=== PATIENT | female | born 1965 | race Caucasian/White ===

== ENCOUNTER 2019-08-09 10:35 | Observation (INO) | payer MEDICAID, SELFPAY ==
[2019-08-06 11:47] VITALS: BMI 32.5
--- NOTE | 2019-08-06 12:29 | ANES.PREANES ---
Pre-Anesthetic Assessment Pre-Anesthetic Assessment: Height/Weight: Height 1.47 m Weight 70.76 kg Proposed Procedure: Operation Date: 08/09/19 11:25 Proposed Procedures p Anterior Cervical Discecotmy&Fusion 2Lev C4-C5, C5-C6(Not Applicable) - Karsten Escobar MD Social: Social History: Tobacco (1 ppd) and No alcohol Airway: Submandibular: WNL Cervical ROM: WNL MP: 1 Dentition: Chipped Additional comments: missing (pulled) Pulmonary: Pulmonary: None reported CV/HEM: CV/HEM: HTN : : None reported Hepatic: Hepatic: None reported GI: GI: None reported Metabolic: Comments: hypoglycemic Musc/skel: Comments: Slipped disc in lower spine, 2 compressed thoracic Neuropsych: Neuropsych: None reported Anesthetic Plan: ASA status: II Anesthesia: General Risk of > 500 ml blood loss (7ml/kg in children): No Other Pertinent Information: During her nerve ablation, she was given etomidate and it damaged veins in arm and caused her to shake uncontrollably PFSH Anesthesia PFSH: Social History (Updated 08/06/19 @ 11:40 by Joan Landry RN) Smoking and tobacco status: current every day smoker cigarettes Packs smoked per day: 1 Years cigarettes smoked: 36 Quit status (tobacco): considering quitting Second hand smoke exposure: Yes Smoking risk assessment/counseling performed?: Yes Data Anesthesia Cardiac Studies: No Data to Display
--- NOTE | 2019-08-06 12:49 | PC.PT ---
pt fit and instructed in care and use of [place] J collar and instructed in written HEP, all questions were answered.
[2019-08-09] VITALS (21 sets, daily range): BP systolic 100–149; BP diastolic 52–80; PULSE 56–88; RESP 16–20; TEMP 36.1–37; O2SAT 90–99
[2019-08-09] MEDS: sodium chloride 0.9% 1,000 ML 30 ML IV (06:29)
--- NOTE | 2019-08-09 07:22 | PM.HPUD ---
H&P update H&P Update: DATE OF SURGERY/PROCEDURE: 08/09/19 DATE H&P PERFORMED: 08/06/19 H&P UPDATE INFORMATION: H&P completed within last 30 days, No changes to prior documentation and H&P to be scanned into chart PLANNED PROCEDURE: Operation Date: 08/09/19 12:30 Proposed Procedures Anterior Cervical Discectomy&Fusion 2Lev C4-C5, C5-C6(Not Applicable) - Karsten Escobar MD Full H&P Medications/Allergies: Current Medications: Current Medications Generic Name Dose Route Start Last Admin Trade Name Freq PRN Reason Stop Dose Admin Sodium Chloride 1,000 mls @ 30 ml s/hr 08/09/19 06:15 08/09/19 06:29 Sodium Chloride 0.9% IV 08/10/19 06:14 30 mls/hr .Q24H KRISHAN Administration Perinent History: Social History: Social History Smoking and tobacco status: current every day smoker cigarettes Packs smoked per day: 1 Years cigarettes smoked: 36 Quit status (tobacco): considering quitting Second hand smoke exposure: Yes Smoking risk assessment/counseling performed?: Yes
--- NOTE | 2019-08-09 07:46 | XR_ITS ---
WS: [id number] Cervical spine, AP and lateral, 08/09/2019, 1112 hours. Clinical Data: arthrodesis status Comparison: Lateral operating room cervical spine, 08/09/2019, 0837 hours. Findings: There is an anterior cervical disc fusion from C4 through C6 with bilateral screws. The fus ion components are in good position. Interbody fusions at C4-C5 and C5-C6 are seen. XR/XR cervical spine 3V* [id number] Impression: Anterior cervical disc fusion C4-C6.
--- NOTE | 2019-08-09 07:49 | XR_ITS ---
WS: [id number] INTRAOPERATIVE TECHNIQUE: Lateral view cervical spine CLINICAL INFORMATION: surgery COMPARISON: None. FINDINGS: Single lateral view cervical spine. Localization marker anteriorly at C5-6. Slight retrolisthesis C4 on C5 and C5 on C6. Endotracheal tube. XR/XR cervical spine [facility] [id number] IMPRESSION: Images obtained for intraoperative purposes.
--- NOTE | 2019-08-09 08:31 | SUR.OPER ---
UPDATED FAMILY ON PATIENT'S STATUS VIA PERSONAL CELLPHONE.
--- NOTE | 2019-08-09 08:36 | XR_ITS ---
WS: [id number] Portable lateral OR C-spine, 08/09/2019, 0837 hours Clinical Data: SURGERY Comparison: Portable OR lateral C-spine, today, 0754 hours. Findings: Retractors are now in position. There is a radiopaque needle which is localizing the C4-C5 disc inter space. The endotracheal tube remains in good position. XR/XR cervical spine [facility] [id number] Impression: Localization of the C4-C5 disc interspace.
--- NOTE | 2019-08-09 09:34 | SUR.OPER ---
NOTIFIED FAMILY OF PATIENT'S STATUS VIA PERSONAL CELLPHONE.
--- NOTE | 2019-08-09 10:09 | SUR.OPER ---
NOTIFIED FAMILY OF PATIENT'S STATUS VIA PERSONAL CELLPHONE.
[2019-08-09] MEDS: fentaNYL 50 mcg/mL INJ 2mL IVP ×2 (10:45→10:52)
--- NOTE | 2019-08-09 11:02 | SUR.PHASEI ---
PT AWAKE ALERT ON RA SATS DOWN TO 90% AFTER PAIN MEDS PT PLACED ON 3LNC WITH GOOD SPONTANEOUS RESP NO DISTRESS SATS QUICKLY UP TO 95% . PT TAKING OCC ICE CHIPS
[2019-08-09] MEDS: morphine 4 mg/mL SDV 1 mL 2 MG IVP ×4 (11:10→11:24)
--- NOTE | 2019-08-09 11:33 | SUR.PHASEI ---
PT STILL RATES LT SHOULDER PAIN AT 8 PT RESTING MORE QUIETLY DOZES IF NOT DISTURBED FACE SCALE 4 PT TAKING ICE CHIPS FAMILY UPDATED VSS.
[2019-08-09] MEDS: lactated ringers 1,000 ML 90 ML IV (12:04)
--- NOTE | 2019-08-09 12:05 | SUR.PHASEI ---
PT TO FLOOR AWAKE ALERT FAMILY WALKED UP WITH PT PT TALKATIVE AND UP AND WALKED TO FLOOR BED WITH NO DIFFICULTY, NECK BRACE IN PLACE DRESSING TO ANT NECK D/I NO SWELLING NOTED
[2019-08-09] MEDS: docusate sodium 100 mg Capsule PO ×2 (12:18→18:01)
[2019-08-09] MEDS: tizanidine 4 mg Tablet PO ×2 (12:18→18:03)
[2019-08-09] MEDS: HYDROcodone-acetaminophen 5-325 mg Tablet PO (15:06)
--- NOTE | 2019-08-09 15:52 | P.DS_ITS ---
Discharge Providers Date of Admission: 08/09/19 10:35 Date of Discharge: 08/09/19 Attending Provider at Admission: Karsten Escobar Attending Provider at Discharge: Karsten Escobar Diagnoses at Discharge Discharge Diagnosis (1) Status post cervical spinal fusion: Status: Acute Problem details: Patient is doing well after C4-C6 ACDFF performed earlier today. She has ambulated, voided, and tolerated diet. She appears reasonable for discharge home this evening. (2) Intervertebral cervical disc disorder with myelopathy, cervical region: Status: Acute (3) Instability of joint: Status: Acute Reason for Visit Reason for Visit: Reason For Visit: Cervical Disc Disorder with Myelopathy of Mid-Cerv Hospital Course Hospital Course: The patient is a 53-year-old white female with symptomatic, radiographically confirmed cervical disc/joint disease and associated neural impingement. She complained primarily of left upper extremity symptoms. Imaging studies demonstrated dominant impingement sites at C4-C5 and C5-C6. Conservative management did not provide adequate lasting symptom relief. After review of the diagnostic and treatment options with the risks/potential benefits/rationale for each, the patient requested to proceed with surgical intervention. She underwent C4-C6 ACDFF on 08/09/2019. She tolerated the procedure well. She noted improvement in preoperative symptoms following surgery. She completed perioperative intravenous antibiotic doses, and the physical therapy postoperative spine protocol. She was ambulatory, voiding, and tolerating regular diet prior to requested discharge home on the evening of the date of surgery. Physical Exam Const: COMMON NORMALS: no apparent distress GENERAL APPEARANCE: cooperative and comfortable Neck/C-Spine: COMMON NORMALS: supple and no JVD CERVICAL SPINE: Yes collar present Resp: COMMON NORMALS: normal respiratory effort EFFORT & INSPECTION: Yes able to speak in complete sentences and No stridor Cardio: COMMON NORMALS: no JVD Neuro: GAIT: Yes normal gait MOTOR EXAM: strength 5/5 throughout (bilateral upper extremities) Psych: COMMON NORMALS: speech normal ATTITUDE: Yes calm and Yes engaged ACTIVITY/MOTOR BEHAVIOR: Yes appropriate eye contact SPEECH: Yes normal speech MOOD & AFFECT: Yes euthymic mood ATTENTION/CONCENTRATION: Yes attention grossly intact INSIGHT: insight good JUDGEMENT: judgment good Skin: WOUNDS: Yes surgical site (Left anterolateral neck surgical site dressing clean/dry/intact. Incision without erythema or active drainage.) Urinary Catheter Management^: Ag: Cath Placed During This Visit: no Discharge Data Data Completed and Pending: Completed Studies During Hospitalization Category Date Time Status XR cervical spine 1 view portable [ XR cervical spine Exams 08/09/19 07:49 Completed 1[facility]port 22823] Rou jake XR cervical spine 1 view portable [ XR cervical spine Exams 08/09/19 08:36 Completed 1[facility] [id number]] Rou jake XR cervical spine 3V* [id number] Routine Exams 08/09/19 07:46 Completed Pathology: Surgic al [PTH] Routine Pth 08/09/19 10:20 Completed Vitals: Last Vital Signs Temp 98.0 F 08/09/19 17:55 Pulse 88 08/09/19 17:55 Resp 18 08/09/19 17:55 BP 118/66 08/09/19 14:55 Pulse Ox 95 08/09/19 17:55 Discharge Plan Discharge Patient Disposition: Home, Self-Care Condition: Stable Prescriptions: New hydrocodone-acetaminophen 5-325 mg Tablet 1 - 2 tab PO Q4H PRN (Reason: Moderate To Severe Pain) Qty: 30 RF: 0 Continued cetirizine [Zyrtec] 10 mg Tablet 10 mg PO DAILY PRN (Reason: Allergy Symptoms) RF: 0 tizanidine 4 mg Tablet 4 mg PO TID PRN (Reason: Muscle Spasm) RF: 0 fluoxetine 10 mg Tablet 10 mg PO DAILY RF: 0 amlodipine 5 mg Tablet 5 mg PO DAILY RF: 0 estradiol 1 mg Tablet 1 mg PO DAILY RF: 0 metoprolol tartrate 25 mg tablet 25 mg PO BID RF: 0 Discharge Orders: Discharge Order (Routine); Ordered 08/09/19 Ordered By: Karsten Escobar Other Ambulatory Orders: XR cervical spine 3V* [id number] (Routine) Timeframe: 2 Weeks Facility: [facility] - Location: Radiology [place] [facility] Ordered By: Karsten Escobar Referrals: Karsten Escobar MD [Physician] - 2 weeks (AP/lateral c-spine x-rays prior to visit. Please call and schedule a follow up with Dr. Escobar in 2 weeks) Discharge Diet: Advance as tolerated Discharge Activity: Limit activity as instructed Patient Instructions: Hydrocodone/Acetaminophen (By mouth), Anterior Cervical Discectomy (DC) Activity Restrictions/Additional Instructions: Activity -Cervical fusion: Wear cervical collar 24 hours a day. Change as necessary for showering, shaving, or if it becomes soiled. -No lifting or reaching overhead. - No driving until office followup visit - No lifting/pushing/pulling over 10 pounds - Avoid twisting or bending - Walking is encouraged - Home exercise per physical therapist - You may engage in sexual intercourse at any time as long as it is comfortable for you - Check with your doctor before returning to work. Notify your doctor if you develop: - temperature of 101.5 degrees F. or higher - redness or swelling of the incision - Foul drainage - increasing pain - increasing numbness or tingling in the arms or legs - New or increasing problems with vision, balance, memory, speaking, nausea or vomiting Hygiene: - Showering is okay - No tub baths or soaking Other: Remove outer bandage 3 days after surgery. If you have paper strips, leave in place until they fall off on their own. If you have stitches, keep your incision dry until the stitches are removed. Your doctor's office is available to answer any questions from 7 AM to 5:30 PM, Tuesday through at [phone]. After hours, go to the emergency room at [facility] or call 911 for assistance. Discharge Date/Time: 08/09/19 18:50 Discharge Attestations Time Spent in Discharge Care*: other (postop global period) Quality Metrics Clinical Quality Measures During this hospital stay, did patient experience: None Coding Level of Care Code Acute Burrer Operator for Kiya Garay Exam Problem Focused Diagnoses Status post cervical spinal fusion Z98.1 Intervertebral cervical disc disorder with myelopathy, cervical region M50.00 Instability of joint M25.30 Comment postop global period
[2019-08-09] MEDS: ondansetron 2 mg/ML SDV 2 mL 4 MG IVP (16:00)
--- NOTE | 2019-08-10 10:03 | SUR.OPER ---
late entry: 08/09/2019 0830 surgifoam 1 sponge was used in the neck. lot [id number] exp 09/06/22.
--- NOTE | 2019-08-10 11:19 | PM.OP ---
Operative Report Post-Operative Note Date of procedure: 08/09/19 Operative Report Procedure: DATE OF SURGERY: 08/09/2019 DATE OF DICTATION: 08/10/2019 PREOPERATIVE DIAGNOSIS: Intervertebral disc disorder with myelopathy, midcervical region. POSTOPERATIVE DIAGNOSES: 1. Intervertebral disc disorder with myelopathy, midcervical region. 2. Instability of joint. PROCEDURES PERFORMED: 1. C4-C5, C5-C6 anterior cervical discectomy with osteophytectomy. 2. C4-C5, C5-C6 anterior cervical plate and screw fixation (Synthes Vectra system). 3. C4-C5, C5-C6 placement of intervertebral prosthetic device (ACIS ProTi Spacer). 4. C4-C5, C5-C6 anterior cervical fusion utilizing morselized autograft obtained from the osteophytectomy portions of the procedure. ANESTHESIA: General endotracheal. ESTIMATED BLOOD LOSS: <50 milliliters. SURGEON: Nolvia Escobar M.D. INDICATIONS FOR PROCEDURE: The patient is a 53-year-old white female with symptomatic, radiographically confirmed cervical disc/joint disease and associated neural impingement. She complained primarily of left upper extremity symptoms. Imaging studies demonstrated dominant impingement sites at C4-C5 and C5-C6. Conservative management did not provide adequate lasting symptom relief. After review of the diagnostic and treatment options with the risks/potential benefits/rationale for each, the patient requested to proceed with surgical intervention. DESCRIPTION OF PROCEDURE: After routine preoperative evaluation and informed consent were obtained, the patient was taken to the Operating Room and placed under general endotracheal anesthesia. She was positioned supine and fit in the [facility] tongs for the application of in-line cervical traction. The anterolateral neck on the left was prepared with hair clippers. A proposed transverse skin incision was marked with a sterile skin marker, utilizing intraoperative radiography and regional anatomy for localization. The area was scrubbed with Betadine, prepped with DuraPrep, and draped with sterile towels and drapes. [place] surgical barrier was applied. The proposed incision site was infiltrated with 1% Xylocaine with Epinephrine. A skin incision was made and carried down into the subcutaneous tissues. The platysma was identified and divided in the direction of its fibers. A plane was dissected just medial to the carotid sheath and lateral to the midline esophagus and trachea. Prevertebral soft tissues were bluntly dissected free of the anterior margin of the cervical spine. Longus coli muscles were freed from their medial attachments. Deep self-retaining retractors were placed. Intraoperative radiography verified the desired surgical levels. The C4-C5 and C5-C6 interspaces were sequentially incised with a #11 blade. Discectomies were accomplished utilizing various curettes and pituitary rongeurs. Anterior marginal osteophytes were resected with the Lempert and Kerrison rongeurs. Cartilaginous end plates were stripped free with curettes. Posterior marginal osteophytes were resected with thin foot plate Kerrison rongeurs. The medial aspects of the neural foramina were enlarged in a similar manner. Posterior longitudinal ligament was divided and resected as necessary to further the decompression. Overall, encroachment and osteophyte prominence were greater on the left than the right, consistent with preoperative imaging studies. Once the decompressions were felt to be adequate at both levels, the disc spaces were sized. A 7 mm ACIS ProTi lordotic/medium Spacer was chosen for C4-C5. A 7 mm lordotic ACIS ProTi lordotic/medium Spacer was chosen for C5-C6. The Spacers were packed with morselized autograft obtained from the osteophytectomy portions of the procedure. The Spacers were sequentially placed within the C4-C5 and C5-C6 interspaces while in-line cervical traction was applied via the [place] tongs. Once the Spacers were felt to be in good position, a Synthes Vectra plate of the desired size was chosen. The plate was secured to the C4, C5 and C6 vertebral bodies with bilateral 4 mm x 14 mm self-drilling screws. Final screw tightening was performed, and the locking mechanisms within the plate were noted to engage the screws at each site. The construct was inspected and felt to be in good position and secure. The wound was copiously irrigated with sterile saline and antibiotic irrigation. Hemostasis was ensured with the bipolar electrocautery. Wound closure was performed in multiple layers with 2-0 Vicryl Plus simple interrupted closure of the platysma and deep dermis as separate layers. Final skin closure was performed with 4-0 Vicryl Plus in a running subcuticular pattern. Steri-Strips were applied and a sterile dressing was placed. The patient was released from the [place] tongs and fit in a [place] collar. She was transferred onto the Recovery Room cart in the supine position. She was extubated without incident. The patient tolerated the procedure well. There were no known complications. All sponge, needle, and instrument counts were correct at the completion of the procedure.
== END 2019-08-09 18:50 | disposition home or self-care (01) ==
LOC: MEDSURG 10:36
PROVIDERS: Admitting Provider Specialist; Family Provider Nurse Practitioner Family; Visit Provider Specialist
PROC: 0RB30ZZ Excision of Cervical Vertebral Disc, Open Approach (ICD-10-PCS; CPT 22551; principal; 2019-08-09 07:00)
DX: M50.021 Cervical disc disorder at C4-C5 level with myelopathy (principal); F17.210 Nicotine dependence, cigarettes, uncomplicated; I10 Essential (primary) hypertension
CPT/HCPCS: 20936; 22551; 22552; 22853 ×2; 12345; 51702; 72020; 72040; 88304; 96365; 96375; 97110; 97161; C1713; G0378; J0690; J1100; J2001; J2270; J2405; J2704; J3010; J3490; J7030; L0172; L0174

== ENCOUNTER 2019-08-27 08:32 | Outpatient (CLI) | payer MEDICAID, SELFPAY ==
--- NOTE | 2019-08-27 08:41 | XR_ITS ---
WS: [id number] CERVICAL SPINE TECHNIQUE: 3 views of the cervical spine CLINICAL INFORMATION: arthrodesis status, S/P CERVICAL FUSION COMPARISON: [id number] FINDINGS: Straightening of the normal cervical lordosis. Anterior cervical fusion C4-C6 with interbody fusion. Disc space narrowing C6-7. Normal prevertebral soft tissues. XR/XR cervical spine 3V* [id number] IMPRESSION: 1. Straightening of the normal cervical lordosis. 2. Anterior cervical fusion with interbody fusion C4-C6. Hardware appears in g ood position. 3. Disc space narrowing C6-C7.
== END 2019-08-27 08:33 | disposition home or self-care (01) ==
LOC: WPI 08:37
PROVIDERS: Family Provider Nurse Practitioner Family; PCP Nurse Practitioner Family; Visit Provider Specialist
DX: Z98.1 Arthrodesis status (principal)
CPT/HCPCS: 72040

== ENCOUNTER 2019-09-19 10:18 | Outpatient (CLI) | payer MEDICAID, SELFPAY ==
--- NOTE | 2019-09-19 10:30 | XR_ITS ---
WS: [id number] CERVICAL SPINE 2 VIEWS HISTORY: s/p cervical spinal fusion COMPARISON: 08/27/2019 Prior anterior cervical fusion from C4 to C6. Interbody spacers at C4-5 and C5-6. No subsidence or garcia rdware failure. No change in position of the hardware. Moderate disc space narrowing at C6-7 with sma ll hypertrophic osteophytes. No fracture. Soft tissues are normal. XR/XR cervical spine 3V* [id number] IMPRESSION: 1. Stable anterior cervical fusion with interbody spacers from C4 to C6. No co mplications. 2. Moderate disc space narrowing at C6-7 is unchanged.
== END 2019-09-19 10:19 | disposition home or self-care (01) ==
LOC: RADWPI 10:20
PROVIDERS: Family Provider Nurse Practitioner Family; PCP Nurse Practitioner Family; Visit Provider Licensed Practical Nurse
DX: Z98.1 Arthrodesis status (principal)
CPT/HCPCS: 72040

== ENCOUNTER 2019-09-21 13:09 | Outpatient (CLI) | payer MEDICAID, SELFPAY ==
--- NOTE | 2019-09-21 13:23 | MM_ITS ---
WS: [id number] BILATERAL DIGITAL SCREENING MAMMOGRAPHY WITH CAD CLINICAL INFORMATION: SCREENING HISTORY: Screening mammogram. No current complaints. COMPARISON: TECHNIQUE: Bilateral CC and MLO views. FINDINGS: Scattered fibroglandular densities bilaterally. No suspicious focal mass, asymmetry, calcifications, or architectural distortion. Lucent centered calcifications. No evidence of malignancy. MM/[place] [id number] IMPRESSION: BI-RADS: 2-Benign FOLLOW UP: 1 Year Follow-up Recommend return to annual screening mammography.
== END 2019-09-21 13:10 | disposition home or self-care (01) ==
LOC: RADSHAW 13:13
PROVIDERS: Family Provider Nurse Practitioner Family; PCP Nurse Practitioner Family; Visit Provider Nurse Practitioner Family
DX: Z12.31 Encounter for screening mammogram for malignant neoplasm of breast (principal)
CPT/HCPCS: 77067

== ENCOUNTER 2019-10-10 14:24 | Outpatient (CLI) | payer MEDICAID, SELFPAY ==
--- NOTE | 2019-10-10 11:00 | CT_ITS ---
WS: [id number] CT CERVICAL SPINE HISTORY: s/p cervical spinal fusion TECHNIQUE: Contiguous 2.5 mm axial imaging performed through the entire cervical spine. Sagittal and coronal reformats also performed. All CT scans at [facility] use at least one of these do se optimization techniques: automated exposure control; mA and/or kV adjustment per patient size (inc ludes targeted exams where dose is matched to clinical indication); or iterative reconstruction. DLP: 1599.49 mGycm COMPARISON: 05/17/2019 Prior anterior cervical fusion extends from C4 to C6. Interbody spacers at C4-5 and C5-6 without bone fusion. Moderate disc space narrowing at C6-7. No fractures. Craniocervical junction is normal. C2-C3: Shallow central protrusion. C3-C4: Normal. C4-C5: Mild osteophytic ridging with LEFT foraminal narrowing. No stenosis. C5-C6: Moderate osteophytic ridging with mild central and moderate bilateral foraminal stenosis. C6-C7: Mild osteophytic ridging with encroachment into the foramen. Moderate bilateral foraminal sten osis and mild central stenosis. Slightly greater stenosis on the LEFT. C7-T1: Normal. Unfused apophysis spinous process of T1 or remote fracture. Lung apices are clear. Mild atherosclerosis carotid arteries. CT/CT cervical spin wo con* [id number] IMPRESSION: 1. Interval anterior cervical fusion with interbody grafting from C4 to C6. No subsidence or fracture. Normal alignment with islam of the disc space he ight. 2. Moderate bilateral foraminal stenosis at C5-6 and C6-7 predominantly due to osteophyte disease. No advancement since the prior study.
== END 2019-10-10 14:25 | disposition home or self-care (01) ==
LOC: RADWPI 14:26
PROVIDERS: Family Provider Nurse Practitioner Family; PCP Nurse Practitioner Family; Visit Provider Licensed Practical Nurse
DX: Z98.1 Arthrodesis status (principal); M48.02 Spinal stenosis, cervical region
CPT/HCPCS: 72125

== ENCOUNTER 2019-11-16 09:24 | Outpatient (CLI) | payer MEDICAID, SELFPAY ==
--- NOTE | 2019-11-16 09:30 | MR_ITS ---
WS: [id number] MRI LUMBAR SPINE NONCONTRAST TECHNIQUE: Sagittal T1, T2 and STIR imaging. Axial T1 and T2 imaging. CLINICAL INFORMATION: Lumbar disc disease COMPARISON: MRI April 17, 2019 FINDINGS: Mild lumbar curve. No acute compression. No high-grade central canal stenosis. L1-L2: Normal. L2-L3: Mild annular bulging. Mild facet arthropathy. Spinal canal and foramen are patent. L3-L4: Mild annular bulging. Moderate facet arthropathy. Slight narrowing of the left subarticular re cess. Foramen are patent. L4-L5: Annular bulging with mild central canal stenosis. Narrowing of the subarticular recess bilater ally. Moderate facet arthropathy. Foramen are patent. L5-S1: No significant disc bulging. Moderate facet arthropathy. Spinal canal and foramen are patent. Visualized pelvic bony structures: Normal. Paravertebral soft tissues: Normal. Small amount of free fluid in the cul-de-sac. Slightly aneurysmal infrarenal abdominal aorta measuring 2.1 x 2.5 cm (AP by transverse). MR/MR lumbar spine wo con* [id number] IMPRESSION: 1. Mild lumbar curve. No acute compression. No high-grade central canal stenos is. 2. Disc bulging worse L4-5 with mild central canal stenosis and impingement on the right greater than left subarticular recess and traversing L5 nerve roots. Eccentric disc bulging at this level with mild bilateral foraminal narrowing. Moderate facet arthropathy. 3. Minimal annular bulging L3-4 with slight effacement of ventral thecal sac. 4. Moderate facet arthropathy L5-S1. 5. Slightly aneurysmal infrarenal abdominal aorta measuring 2.1 x 2.5 cm (AP b y transverse). 6. No significant interval changes since the prior examination.
--- NOTE | 2019-11-16 10:15 | MR_ITS ---
WS: [id number] MRI THORACIC SPINE WITHOUT CONTRAST TECHNIQUE: Sagittal T1, T2 and STIR imaging. Axial T2 imaging. Noncontrast imaging obtained. CLINICAL INFORMATION: Thoracic back pain COMPARISON: None. FINDINGS: Mild thoracic curve. Mild thoracic kyphosis. No acute compression. No high-grade central canal stenos is. A few Schmorl's nodes in the mid thoracic spine. Cord signal is normal. A few small disc protrusi ons the mid thoracic spine. Small disc protrusions more prominent at right T6-7, left T7-8, left T8-9, right T9-T10, and left T10 -11. Moderate facet arthropathy in the lower thoracic spine. Mild bony foraminal narrowing more prominent at bilateral T5-6, right T6-7, bilateral T7-8, bilateral T8-T9, and right T9-T10. MR/MR thoracic spin wo con* [id number] IMPRESSION: 1. Mild thoracic curve with mild thoracic kyphosis. 2. No high-grade central canal stenosis. Cord signal is normal. 3. A few tiny disc protrusions in the mid thoracic spine described above witho ut significant spinal canal narrowing. Disc protrusions of improved slightly si nce 2017. Otherwise no significant interval changes. 4. Mild multilevel foraminal narrowing described above.
--- NOTE | 2019-11-16 11:30 | XR_ITS ---
WS: [id number] THORACIC SPINE TECHNIQUE: 3 views of the thoracic spine CLINICAL INFORMATION: Thoracic pain COMPARISON: None. FINDINGS: Postoperative changes lower cervical spine. Mild anterior wedging in the mid thoracic spine. Mild spo ndylitic changes. No acute appearing compression fractures. Postoperative changes anterior interbody cervical fusion C4-C6. XR/XR thoracic spine 3V* [id number] IMPRESSION: No acute thoracic spine findings.
--- NOTE | 2019-11-16 11:45 | XR_ITS ---
WS: [id number] LUMBAR SPINE FLEXION AND EXTENSION TECHNIQUE: 3 views of the lumbar spine: Lateral neutral, flexion, and extension views. CLINICAL INFORMATION: Low back pain COMPARISON: None. FINDINGS: Slight anterolisthesis L4 on L5 measuring 2.8 mm. This increases on flexion to 3.9 mm and decreases o n extension to 2.8 mm. Moderate facet arthropathy L4-L5 and L5-S1. Anterior wedging lower thoracic sp ine. Disc space narrowing worse at L3-L4 L4-L5 and L5-S1. XR/XR lumbar spine f/e only [id number] IMPRESSION: Mild flexion instability L4-5 described above
== END 2019-11-16 09:25 | disposition home or self-care (01) ==
LOC: RADWPI 09:27
PROVIDERS: Family Provider Nurse Practitioner Family; PCP Nurse Practitioner Family; Visit Provider Licensed Practical Nurse
DX: M51.36 Other intervertebral disc degeneration, lumbar region (principal); M53.2X6 Spinal instabilities, lumbar region; M40.294 Other kyphosis, thoracic region; M51.24 Other intervertebral disc displacement, thoracic region; M48.00 Spinal stenosis, site unspecified; M47.817 Spondylosis without myelopathy or radiculopathy, lumbosacral region; I71.4 Abdominal aortic aneurysm, without rupture
CPT/HCPCS: 72072; 72120; 72146; 72148

== ENCOUNTER 2020-01-02 12:02 | Outpatient (CLI) | payer MEDICAID, SELFPAY ==
--- NOTE | 2020-01-02 12:11 | XR_ITS ---
WS: [id number] XR shoulder LT min 2V* [id number] REASON FOR EXAM: BONE SPUR OF LEFT SHOULDER /BURSITIS/JOINT PAIN FINDINGS: The clavicle scapula bodies are normal. The glenoid humeral articulations are normal. Again noted minimal spurring off the distal undersurface of the clavicle. XR/XR shoulder LT min 2V* [id number] IMPRESSION: Unchanged spurring along the undersurface of the left clavicle.
== END 2020-01-02 12:03 | disposition home or self-care (01) ==
LOC: RAD 12:06
PROVIDERS: PCP Nurse Practitioner Family; Visit Provider Nurse Practitioner Family
DX: M25.712 Osteophyte, left shoulder (principal); M75.52 Bursitis of left shoulder; M25.512 Pain in left shoulder
CPT/HCPCS: 73030

== ENCOUNTER 2020-02-14 16:18 | Outpatient (CLI) | payer MEDICAID, SELFPAY ==
--- NOTE | 2020-02-14 16:45 | MR_ITS ---
WS: [id number] MRI LEFT SHOULDER NONCONTRAST TECHNIQUE: Sagittal T2, coronal T1, T2 and proton density imaging. Axial gradient PDE imaging. CLINICAL INFORMATION: M75.02 Adhesive capsulitis of left shoulder COMPARISON: None. FINDINGS: Moderate to advanced degenerative arthritis AC joint with a small amount of edema and synovial thicke conner. Mild downsloping of the acromion with subacromial spurring. Mild narrowing of the subacromial s pace with impingement on the rotator cuff. Chronic thinning of the distal supraspinatus with tendinopathy. No supraspinatus tears. Infraspinatus is intact. Teres minor is intact. Normal biceps tendon in the bicipital groove. Tendinopathy in the subscapularis with small intrasubst ance tear. Subscapularis is otherwise intact. Glenoid labrum appears grossly intact. Tendinopathy wit h T2 signal abnormality involving the rotator interval and intra-articular biceps tendon. Biceps labr al anchor is intact. Small volume shoulder capsule with thickening along the axillary recess and T2 signal abnormality benjamin ng the rotator interval. Findings can be seen with adhesive capsulitis in appropriate clinical settin g. MR/MR shoulder LT wo con* [id number] IMPRESSION: 1. Moderate to advanced degenerative arthritis at the AC joint with synovial t hickening and mild edema. Downsloping of the acromion with subacromial spurring and narrowing of the subacromial space. 2. Tendinopathy in the distal supraspinatus. No high-grade rotator cuff tears. 3. Tendinopathy involving the subscapularis with a small intrasubstance tear. 4. Tendinopathy involving the intra-articular biceps tendon. 5. Findings suggestive of adhesive capsulitis detailed above
== END 2020-02-14 16:19 | disposition home or self-care (01) ==
LOC: RADSHAW 16:22
PROVIDERS: PCP Nurse Practitioner Family; Visit Provider Orthopaedic Surgery
DX: M75.02 Adhesive capsulitis of left shoulder (principal); M19.012 Primary osteoarthritis, left shoulder; R60.9 Edema, unspecified; M75.32 Calcific tendinitis of left shoulder
CPT/HCPCS: 73221

== ENCOUNTER 2020-02-25 13:01 | Outpatient (CLI) | payer MEDICAID, SELFPAY ==
--- NOTE | 2020-02-25 13:05 | XRR_ITS ---
PROCEDURE INFORMATION: Exam: XR Cervical Spine, 2 or 3 Views Exam date and time: 02/25/2020 1:06 PM Age: 54 years old Clinical indication: Neck pain; Additional info: Cervical pain TECHNIQUE: Imaging protocol: XR of the cervical spine, 2 or 3 views. COMPARISON: CT cervical spin wo con* [id number] 10/10/2019 2:52 PM FINDINGS: Vertebrae: There is anterior fusion plate at C4, C5 and C6. No evidence for hardware failure. There is disc space narrowing and osteophyte formation especially at C6/7. No acute fracture. No translation with flexion or extension. Soft tissues: Unremarkable. XR/XR cervical spine fl/ex [id number] IMPRESSION: There are no acute concerning abnormalities.
== END 2020-02-25 13:02 | disposition home or self-care (01) ==
PROVIDERS: PCP Nurse Practitioner Family; Visit Provider Specialist
DX: M54.2 Cervicalgia (principal)
CPT/HCPCS: 72040

== ENCOUNTER 2020-03-11 08:28 | Outpatient (CLI) | payer MEDICAID, SELFPAY ==
--- NOTE | 2020-03-11 09:00 | IR_ITS ---
WS: [id number] CERVICAL AND LUMBAR MYELOGRAMs HISTORY: cervical pain, LOW BACK PAIN COMPARISON: 09/11/2018 FLUOROSCOPY TIME: 1.3 minutes. Procedure, risks and complications were explained to the patient. Risks including bleeding, infection , headaches, allergic reaction and seizures. Consent has been obtained. With the patient in prone position the skin over the lumbar region is cleansed with ChloraPrep and an esthetized with lidocaine. 22-gauge spinal needle is inserted into the thecal sac at the appropriate level determined by fluoroscopy. Omnipaque 300; 13 ml is injected slowly under fluoroscopy with no co mplications. Needle bevel is perpendicular to the longitudinal fibers of the dura. Stylet is reinsert ed prior to removal of the needle. Patient tolerated the procedure well. Patient will proceed to CT f or further evaluation. Uncomplicated injection into the thecal sac. Anterior cervical fusion hardware with interbody spacers from C4 to C6. Advanced degenerative disc space narrowing and osteophytes at C6-7. Straightening of the normal cervical lordosis. There is slight retrolisthesis of C5 by less than 2 mm. Osteophytes als o project posteriorly from C5 and C6. With flexion and extension there is no significant instability. No lucency around the hardware. Good distention of the lumbar thecal sac. There is mild encroachment upon the ventral thecal sac at t he L3-4 level. No instability with flexion or extension. Mild atherosclerosis aorta. IR/IR myelogram spine cervic/lumb IMPRESSION: 1. Uncomplicated cervical and lumbar myelograms. 2. Prior anterior cervical fusion from C4 to C6 with interbody spacers. No com plications. 3. Straightening of the normal cervical lordosis with no instability. 4. Moderate to advanced degenerative disc space narrowing and desiccation at C 6-7. 5. No lumbar spine instability or significant stenosis.
[2020-03-11] MEDS: iohexol 300 mg/mL 50 mL Btl INTRATHECA (09:41)
--- NOTE | 2020-03-11 11:00 | CT_ITS ---
WS: [id number] CT CERVICAL MYELOGRAM HISTORY: cervical pain Technique: All CT scans at [facility] use at least one of these dose optimization techniq ues: automated exposure control; mA and/or kV adjustment per patient size (includes targeted exams wh ere dose is matched to clinical indication); or iterative reconstruction. DLP: 2082.76 mGycm COMPARISON: 10/10/2019 Good opacification of thecal sac with contrast. Anterior cervical fusion with interbody grafting from C4 to C6. No change in position of the hardware or lucency around the hardware. No definite complete fusion across the disc spaces. Alignment is nor mal. Moderate degenerative disc space narrowing at C6-7 with endplate osteophytes. C1-C2: Normal. C2-C3: Normal. C3-C4: Normal. C4-C5: Mild osteophytic ridging. There is very mild central and foraminal stenosis. No focal disc pro trusion. C5-C6: Significant beam hardening artifact through the central canal. There is osteophytic ridging wi thout a focal disc protrusion. Osteophyte encroachment upon the thecal sac and foramen. Mild central with enxn-sq-fywxozme bilateral foraminal stenosis. C6-C7: Diffuse osteophytic ridging encroaching upon the thecal sac and foramen. Mild central stenosis with moderate bilateral foraminal stenosis. Lung apices are clear. CT/CT cervical spine w con [id number] IMPRESSION: 1. Prior anterior cervical fusion with interbody grafting from C4 to C6 with n o complications. 2. Mild central with moderate bilateral foraminal stenosis at C6-7 predominant ly due to osteophytic ridging. 3. Mild central with nlxx-hy-qtuxavhy bilateral foraminal stenosis at C5-C6 pr edominantly due to osteophytes.
--- NOTE | 2020-03-11 11:30 | CT_ITS ---
WS: [id number] CT MYELOGRAM LUMBAR SPINE HISTORY: lumbar pain TECHNIQUE: Contiguous 2.5 mm axial imaging performed from T12 through the mid sacral level. Bone and soft tissue windows reviewed. Sagittal and coronal reformats are submitted and reviewed. DLP: 1800.[address] scans at [facility] use at least one of these dose optimization techniques: automat ed exposure control; mA and/or kV adjustment per patient size (includes targeted exams where dose is matched to clinical indication); or iterative reconstruction. COMPARISON: 09/11/2018, 11/16/2019 Good opacification of the thecal sac. Posterior lumbar alignment is normal. Small endplate osteophyte s at all levels. No fracture or significant disc space desiccation. L1-L2: No stenosis or herniation. Well-circumscribed lytic area in the superior facet joint of L2 on the LEFT. L2-L3: Very mild annular disc bulging with ligamentum flavum hypertrophy. No significant stenosis. L3-L4: Moderate annular disc bulging with effacement of the ventricles thecal sac. No focal disc prot rusion. Mild ligamentum flavum hypertrophy. Very mild central and subarticular recess encroachment. L4-L5: Moderate annular disc bulging. Mild central stenosis with narrowing of the subarticular recess es bilaterally. Facet joint arthritis encroaches also upon the thecal sac. Mild central, subarticular recess and bilateral foraminal stenosis. Mild encroachment upon the L5 nerve roots bilaterally. L5-S1: Broad-based central disc bulging. No stenosis. Atherosclerosis within the aorta. Mild ectasia and aneurysmal dilatation of the infrarenal aorta with a maximum diameter of 2.[address]/CT lumbar spine w con [id number] IMPRESSION: 1. Mild facet joint arthritis throughout the lumbar spine. 2. Mild central, subarticular recess and bilateral foraminal stenosis at L4-5.
== END 2020-03-11 08:29 | disposition home or self-care (01) ==
LOC: RADWPI 08:29
PROVIDERS: Family Provider Nurse Practitioner Family; PCP Nurse Practitioner Family; Visit Provider Specialist
DX: M54.5 Low back pain (principal); M54.2 Cervicalgia; Z98.1 Arthrodesis status; M48.02 Spinal stenosis, cervical region; M25.78 Osteophyte, vertebrae; M46.86 Other specified inflammatory spondylopathies, lumbar region; M48.061 Spinal stenosis, lumbar region without neurogenic claudication
CPT/HCPCS: 62305; 72040; 72120; 72126; 72132; Q9967

== ENCOUNTER → 2020-03-13 12:53 | Outpatient (BNVA) | payer MEDICAID, SELFPAY | PROVIDERS: Family Provider Nurse Practitioner Family; PCP Nurse Practitioner Family; Visit Provider Licensed Practical Nurse | DX: M48.062 Spinal stenosis, lumbar region with neurogenic claudication (principal); M43.16 Spondylolisthesis, lumbar region; Z98.1 Arthrodesis status; F17.210 Nicotine dependence, cigarettes, uncomplicated | CPT/HCPCS: 99214 ==

== ENCOUNTER → 2020-08-08 09:57 | Outpatient (BNVA) | payer MEDICAID, SELFPAY | PROVIDERS: Family Provider Nurse Practitioner Family; PCP Nurse Practitioner Family; Referring Provider Nurse Practitioner Family; Visit Provider Nurse Practitioner Family | DX: R32 Unspecified urinary incontinence (principal) | CPT/HCPCS: 81003 ==

== ENCOUNTER → 2020-10-14 13:23 | Outpatient (BNVA) | payer MEDICAID, SELFPAY | PROVIDERS: Family Provider Nurse Practitioner Family; PCP Nurse Practitioner Family; Visit Provider Urology | DX: N39.3 Stress incontinence (female) (male) (principal) | CPT/HCPCS: 81003 ==

== ENCOUNTER 2021-02-27 13:32 | Outpatient (CLI) | payer MEDICAID, SELFPAY ==
--- NOTE | 2021-02-27 13:45 | MM_ITS ---
WS: [id number] BILATERAL DIGITAL SCREENING MAMMOGRAPHY WITH CAD CLINICAL INFORMATION: SCREEN HISTORY: Screening mammogram. No current complaints. COMPARISON: September 21, 2019 TECHNIQUE: Bilateral CC and MLO views. FINDINGS: Scattered fibroglandular densities bilaterally. Punctate and lucent centered calcifications. No suspi cious focal mass, asymmetry, calcifications, or architectural distortion. No evidence of malignancy. MM/[place] [id number] IMPRESSION: BI-RADS: 2-Benign FOLLOW UP: 1 Year Follow-up Recommend return to annual screening mammography.
== END 2021-02-27 13:33 | disposition home or self-care (01) ==
LOC: RADSHAW 13:38
PROVIDERS: PCP Nurse Practitioner Family; Visit Provider Family Medicine
DX: Z12.31 Encounter for screening mammogram for malignant neoplasm of breast (principal)
CPT/HCPCS: 77067

== ENCOUNTER 2021-12-09 11:59 | Outpatient (CLI) | payer MEDICARE, MEDICAID, SELFPAY ==
--- NOTE | 2021-12-09 12:17 | USCV_ITS ---
Lady Reynoso Age: 56 Gender: F : 1965 Exam Date: 12/09/2021 12:27 Ordering Phys: Nicole Chavez Technologist: Exam Location: [facility] [place] Indication: AAA HISTORY: Diameter (cm) AP x Transverse x Length Velocity (cm/s) Waveform Prox Aorta: 1.62 x 2.02 x 72.70 Mid Aorta: 1.88 x 1.69 x 95.00 Distal Aorta: 2.21 x 2.11 x 100.80 Right Iliac Prox: 0.78 x 0.87 x 140.50 Left Iliac Prox: 0.80 x 0.94 x 123.40 Stent Prox Landing x x Aneurysmal Sac Max x x Lt Lat Sac Dim Rt Lat Sac Dim Stent Dist Landing x x Right Iliac Stent x x Left Iliac Stent x x Right Renal Art Left Renal Art FINDINGS: Mild diffuse plaques in the proximal and mid abdominal aorta Moderate heterogeneous plaques at the distal abdominal aorta and the proximal common iliac arteries. Normal abdominal aortic dimensions. Near normal Doppler flow velocities CONCLUSIONS 1. No evidence of abdominal aortic aneurysm 2. Moderate heterogeneous plaques at the distal abdominal aorta and proximal common iliac arteries 3. No significant stenosis in the abdominal aorta or in the proximal common iliac arteries, based on the above findings No similar previous studies are available for comparison Dr Rosy Potts MD [facility] (Electronically Signed) Final Date: 11 Dec 2021 08:13 S
== END 2021-12-09 12:00 | disposition home or self-care (01) ==
PROVIDERS: PCP Nurse Practitioner Family; Visit Provider Nurse Practitioner Family
DX: I71.9 Aortic aneurysm of unspecified site, without rupture (principal)
CPT/HCPCS: 93978

== ENCOUNTER 2022-01-18 14:17 | Outpatient (CLI) | payer MEDICARE, MEDICAID, SELFPAY ==
--- NOTE | 2022-01-18 14:30 | XR_ITS ---
WS: [id number] Exam: XR lumbar spine 2-3V* [id number] Date/Time of Exam: 01/18/2022 2:30 PM Reason For Exam: LUMBAR FACET ARTHROPATHY There is interbody fusion of the lumbar spine at L4-5 with pedicle screws and posterior rods. A disc spacer is noted. Alignment is anatomic. Decompression laminectomy at L4-5. No acute fracture. Mild sp ondylosis. Remaining disc spaces are relatively well maintained. Facet arthropathy at L5-S1. XR/XR lumbar spine 2-3V* [id number] IMPRESSION: 1. Stable-appearing interbody fusion with decompression laminectomy at L4-5. 2. Minimal degenerative changes. No other significant finding.
== END 2022-01-18 14:18 | disposition home or self-care (01) ==
LOC: RAD 14:22
PROVIDERS: PCP Nurse Practitioner Family; Visit Provider Nurse Practitioner Family
DX: M12.88 Other specific arthropathies, not elsewhere classified, other specified site (principal); M47.896 Other spondylosis, lumbar region
CPT/HCPCS: 72100

== ENCOUNTER 2022-11-12 13:11 | Outpatient (CLI) | payer MEDICARE, MEDICAID, SELFPAY ==
--- NOTE | 2022-11-12 13:26 | MR_ITS ---
WS: [id number] MRI LUMBAR SPINE NONCONTRAST HISTORY: LUMBAR BACK PAIN/HX OF LUMBAR FUSION COMPARISON: 11/16/2019 TECHNIQUE: Sagittal and axial multisequence imaging is submitted. Anterior cervical fusion hardware is noted. Posterior lumbar fusion at L4-5 with decompression laminectomy. Interbody spacer at L4-5. Very minimal anterolisthesis of L4. Otherwise alignment is normal. No acute fracture or marrow edema. Mild disc desiccation. Conus terminates normally at L1. L1-L2: Mild facet joint arthritis on the LEFT. No stenosis. L2-L3: Mild annular disc bulging with moderate ligamentum flavum and facet arthritis. No stenosis. L3-L4: Moderate annular disc bulging encroaching upon the ventral thecal sac. Effacement of CSF with marked ligamentum flavum and facet arthritis. Prominent soft tissue extending inferior to the disc sp win appears to be an extruded disc. Mild to moderate narrowing of the subarticular recesses, central and bilateral foraminal stenosis. L4-L5: Mild annular disc bulging with a patulous thecal sac. Large posterior laminectomy defect. Mild bilateral foraminal stenosis. L5-S1: Bilateral facet joint arthritis. No stenosis. Mild atherosclerosis aorta. MR/MR lumbar spine wo con* [id number] IMPRESSION: 1. Posterior lumbar fusion at L4-5 with interbody spacer. Similar to the prior study. 2. Mild to moderate central, bilateral subarticular recess and foraminal steno sis at L3-4. Minimal progression since the prior study. There is increased soft tissue extending inferior from the disc space which may be an extruded disc. P ostsurgical gliotic tissue remains in the differential. 3. Large posterior laminectomy defect at L4-5.
== END 2022-11-12 13:12 | disposition home or self-care (01) ==
LOC: RAD 13:18
PROVIDERS: PCP Nurse Practitioner Family; Visit Provider Nurse Practitioner Family
DX: M48.061 Spinal stenosis, lumbar region without neurogenic claudication (principal); Z98.1 Arthrodesis status
CPT/HCPCS: 72148

== ENCOUNTER 2023-09-07 14:51 | Outpatient (CLI) | payer MEDICARE, MEDICAID, SELFPAY ==
--- NOTE | 2023-09-07 15:00 | XR_ITS ---
WS: [id number] XR hip BI 3-4V wo/w pel [id number] REASON FOR EXAM: BILATERAL HIP PAIN FINDINGS: RIGHT HIP: No fracture or focal bone lesion. Mild narrowing of the joint space with mild subchondral sclerosis and osteophytosis of the acetabulum . No soft tissue abnormality. LEFT HIP: No fracture or focal bone lesion. Mild narrowing of the joint space with mild subchondral sclerosis and osteophytosis of the acetabulum . No soft tissue abnormality. IMPRESSION: Mild osteoarthritis of the left hip.
== END 2023-09-07 14:52 | disposition home or self-care (01) ==
LOC: RAD 14:54
PROVIDERS: PCP Nurse Practitioner Family; Visit Provider Nurse Practitioner Family
DX: M16.12 Unilateral primary osteoarthritis, left hip (principal); M25.551 Pain in right hip
CPT/HCPCS: 73522

== ENCOUNTER 2024-01-10 14:18 | Outpatient (CLI) | payer MEDICARE, MEDICAID, SELFPAY ==
--- NOTE | 2024-01-10 14:23 | XRR_ITS ---
PROCEDURE INFORMATION: Exam: XR Cervical Spine Exam date and time: 01/10/2024 3:04 PM Age: 58 years old Clinical indication: Neck pain; Additional info: Neck pain, PT having mammo too TECHNIQUE: Imaging protocol: Radiologic exam of the cervical spine. Views: 6 or more views. COMPARISON: CT cervical spine w con [id number] 03/11/2020 10:19 AM FINDINGS: Bones/joints: Prior anterior fixation at C4-C5 and C5-C6 with intervertebral disc spacers, anterior compression plate, and vertebral body screws. No evidence of hardware complications. Specifically, no evidence for hardware loosening or periprosthetic fractures. Normal anatomic alignment. Decreased disc space at C6-C7 with endplate sclerosis and small anterior osteophytes. Mild degenerative changes of the atlantoaxial joint. The spinal canal is patent. There is no evidence of bony foraminal stenosis. No abnormal vertebral body translocation on the flexion or extension views. There is no evidence of acutely displaced skeletal fractures. There is no evidence of joint dislocation. Soft tissues: The prevertebral soft tissues are normal. No acute soft tissue findings. Airway: The airways are patent. Lungs: No acute findings in the lung apices. Vasculature: There is moderate atherosclerotic calcification of the carotid arteries. XR/XR cervical spine min 6V [id number] IMPRESSION: 1. No acute skeletal pathology or hardware complications. 2. Mild degenerative changes.
--- NOTE | 2024-01-10 14:23 | MM_ITS ---
WS: [id number] BILATERAL 3D TOMOSYNTHESIS DIGITAL SCREENING MAMMOGRAPHY WITH CAD CLINICAL INFORMATION: SCREENING HISTORY: Screening mammogram. History of breast reduction COMPARISON: 2020 TECHNIQUE: Bilateral CC and MLO views. FINDINGS: Scattered fibroglandular densities bilaterally. No suspicious focal mass, asymmetry, calcifications, or architectural distortion. No evidence of malignancy. Incidental lucent centered calcifications. MM/[place] [id number] IMPRESSION: BI-RADS: 2-Benign FOLLOW UP: 1 Year Follow-up Recommend return to annual screening mammography.
== END 2024-01-10 14:19 | disposition home or self-care (01) ==
LOC: RAD 14:18
PROVIDERS: PCP Nurse Practitioner Family; Visit Provider Nurse Practitioner Family
DX: Z12.31 Encounter for screening mammogram for malignant neoplasm of breast (principal); M54.2 Cervicalgia; R92.323 Mammographic fibroglandular density, bilateral breasts; R92.1 Mammographic calcification found on diagnostic imaging of breast
CPT/HCPCS: 72052; 77063; 77067

== ENCOUNTER 2024-01-31 12:10 | Outpatient (CLI) | payer MEDICARE, MEDICAID, SELFPAY ==
--- NOTE | 2024-01-31 12:15 | USCV_ITS ---
Lady Reynoso Age: 58 Gender: F : 1965 Exam Date: 01/31/2024 12:16 Ordering Phys: Nicole Chavez Technologist: DREAD [place] [facility] [place]: dizzy Risk Factors: Previous Vascular Surgery: Right Brachial BP: / Left Brachial BP: / Right Left Velocity (cm/s) Spectral Plaque Velocity (cm/s) Spectral Plaque Syst/Diast Broadening Syst/Diast Broadening 71.10/ 25.80 Prox CCA 71.30 / 24.90 59.50/ 20.60 Mid CCA 81.00 / 30.50 65.90/ 28.40 Distal CCA 70.40 / 24.40 53.70/ 18.90 Prox ICA 68.70 / 28.30 67.60/ 29.30 Mid ICA 62.10 / 22.50 78.00/ 28.30 Distal ICA 46.70 / 21.00 50.30 ECA 65.30 1.20 ICA/CCA 1.00 Antegrade Vertebral Antegrade 36.60/ 12.20 cm/s 70.60/ 26.90 cm/s Tri Subclavian Tri 77.80 92.90 CONCLUSIONS Right ICA stenosis <50%. Mild atheromatous plaque right carotid bulb/ICA. Left ICA stenosis <50%. Moderate atheromatous plaque left carotid bulb/ICA. Intimal thickening in the common carotid arteries and internal carotid arteries bilaterally. Normal antegrade Doppler flow noted in the right vertebral artery. Normal antegrade Doppler flow noted in the left vertebral artery. Thierry Chambers MD (Electronically Signed) Final Date: 31 January 2024 16:21 S
== END 2024-01-31 12:11 | disposition home or self-care (01) ==
LOC: RAD 12:10
PROVIDERS: PCP Nurse Practitioner Family; Visit Provider Nurse Practitioner Family
DX: I65.23 Occlusion and stenosis of bilateral carotid arteries (principal)
CPT/HCPCS: 93880